=== PATIENT | female | born 1945 | race Two or more races ===

== ENCOUNTER 2018-07-12 06:29 | Day surgery (SDC) | payer MEDICARE, OTHER ==
--- NOTE | 2018-07-11 14:05 | Pre-Procedure Note/Attestation ---
Pre-Procedure Note/Attestation Complete Prior to Procedure Planned Procedure: right Procedure Narrative: phaco with IOL Indications for Procedure Pre-Operative Diagnosis: cataract Attestation I attest that I discussed the nature of the procedure; its benefits; risks and complications; and alternatives (and the risks and benefits of such alternatives ), prior to the procedure, with the patient (or the patient's legal professional healthcare representative). I attest that, if there was a reasonable possibility of needing a blood transfusion, the patient (or the patient's legal professional healthcare representative) was given the [facility] standardized written summary, pursuant to the [place] Blood Safety Act ([place] Health and Safety Code # 1645, as amended). I attest that I re-evaluated the patient just prior to the surgery and that there has been no change in the patient's H&P, except as documented below: BALDEV DUMONT Jul 11, 2018 14:05
--- NOTE | 2018-07-11 14:06 | Opthalmology H&P ---
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 BALDEV DUMONT Jul 11, 2018 14:06
[2018-07-12] VITALS (9 sets, daily range): BP systolic 132–159; BP diastolic 60–83
[~2018-07-12] VITALS: Ht 152.4 cm; Wt 80.7 kg
[~2018-07-12 06:29] MED LIST: LEVOFLOXACIN500 MG ORAL; NEOMYCIN-POLY-7.5 M1 OP
[2018-07-12] MEDS ORDERED: Proparacaine 0.5% Opth Soln 15ml RIGHT EYE ONE (07:00)
[2018-07-12] MEDS ORDERED: Pred Forte 1% Opth Susp 1ml ONE (07:00)
[2018-07-12] MEDS ORDERED: Akten 3.5% 1ml Btl RIGHT EYE ONE (07:00)
[2018-07-12] MEDS ORDERED: Tetracaine 0.5% Opth 4ml Soln RIGHT EYE ONE (07:00)
[2018-07-12] MEDS ORDERED: Dexamethasone 4mg/ml vial ONE ×2 (07:00→12:12)
[2018-07-12] MEDS ORDERED: Maxitrol Opth Oint 3.5gm ONE (07:00)
[2018-07-12] MEDS ORDERED: Pilocarpine 2% Opth 15ml Soln ONE (07:00)
[2018-07-12] MEDS ORDERED: BSS 15ml BTL ONE ×2 (07:20→12:02)
[2018-07-12] MEDS ORDERED: acetaZOLAMIDE 500mg Inj ONE ×2 (07:20→12:01)
[2018-07-12] MEDS ORDERED: Lidocaine 2% MPF 5ml Vial INJ ONE ×2 (07:20→07:21)
[2018-07-12] MEDS ORDERED: EPINEPHrine 1mg/1ml Amp ONE ×2 (07:20→12:01)
[2018-07-12] MEDS ORDERED: BSS 500ml btl ONE ×2 (07:20→12:01)
[2018-07-12] MEDS ORDERED: Carbachol 0.01% Op Soln 1.5ml vial ONE (07:20)
[2018-07-12] MEDS ORDERED: Povidone-Iodine 5% opth solution ONE ×2 (07:21→12:02)
[2018-07-12] MEDS ORDERED: Sodium Hyaluronate 14 mg/ml 0.85ml ONE ×2 (07:21→12:02)
[2018-07-12] MEDS ORDERED: fentaNYL 100 mcg/2 mL IV PRN (12:00)
--- NOTE | 2018-07-12 12:11 | Anethesia Preoperative Eval ---
Anesthesia Pre-op PMH/ROS General Date of Evaluation: Jul 12, 2018 Time of Evaluation: 12:05 Anesthesiologist: Alonso ASA Score: ASA 3 Mallampati Score Class I : Soft palate, uvula, fauces, pillars visible Class II: Soft palate, uvula, fauces visible Class III: Soft palate, base of uvula visible Class IV: Only hard plate visible Mallampati Classification: Class I Surgeon: Zuleima Diagnosis: Cataract Surgical Procedure: cataract extraction with IOL implantation Anesthesia History: none Family History: no anesthesia problems Allergies: Coded Allergies: PENICILLINS (Verified Allergy, Intermediate, hives, 07/11/18) Medications: see eMAR Past Medical History Cardiovascular: Reports: HTN, other - cardiolmegaly, pulmonary hypertension, hyperlipidemia HEENT: Reports: cataract (R) Other: obesity PMH Narrative: salpingooophorectomy Anesthesia Pre-op Phys. Exam Physician Exam Constitutional: NAD Cardiovascular: RRR Respiratory: CTA Airway Exam Mallampati Score: Class I MO: full ROM: full Anesthesia Pre-op A/P Studies Pre-op Studies: EKG, CXR Risk Assessment & Plan Assessment: ASA 3 Plan: Shellie Durham M.D. Jul 12, 2018 12:11
[2018-07-12] MEDS ORDERED: Lidocaine 1% MPF 10mg/ml 5ml ONE (12:12)
[2018-07-12] MEDS ORDERED: Propofol 200mg/20ml IV ONE (12:12)
[2018-07-12] MEDS ORDERED: Midazolam 2mg/2ml Inj ONE (12:13)
[2018-07-12] MEDS: Diclofenac Sod 0.1% Op Soln RIGHT EYE SCH ×3 (12:15→12:26)
[2018-07-12] MEDS: Tropicamide 1% Opth 15ml Soln RIGHT EYE SCH ×3 (12:15→12:27)
[2018-07-12] MEDS: Cyclopentolate 1% Opth Sol 2ml RIGHT EYE SCH ×3 (12:16→12:26)
[2018-07-12] MEDS: Phenylephrine 10% Opth Soln 5ml RIGHT EYE SCH ×3 (12:16→12:26)
[2018-07-12] MEDS: Tobramycin Op Soln 0.3% 5ml RIGHT EYE SCH ×3 (12:16→12:26)
[2018-07-12] MEDS ORDERED: LR 1000ml ONE (12:30)
[2018-07-12] MEDS ORDERED: Sterile Water Irrig 1000ml IRRIG ONE (12:30)
[2018-07-12] MEDS ORDERED: NS Irrig 1000ml ONE (12:30)
[2018-07-12] MEDS ORDERED: LISINOPRIL10 MG ORAL (12:37)
--- NOTE | 2018-07-12 12:59 | Immediate Post-Op Evaluation ---
Immediate Post-Op Evalulation Immediate Post-Op Evalulation Procedure: r cataract extraction with IOL implantation Date of Evaluation: Jul 12, 2018 Time of Evaluation: 12:58 IV Fluids: 300 Blood Products: none Estimated Blood Loss: none Urinary Output: NR Blood Pressure Systolic: 151 Blood Pressure Diastolic: 78 Pulse Rate: 58 Respiratory Rate: 18 O2 Sat by Pulse Oximetry: 100 Temperature (Fahrenheit): 98.7 Pain Score (1-10): 0 Nausea: No Vomiting: No Complications NONE Patient Status: awake Hydration Status: adequate Drug: NOT INDICATED Shellie Gupta M.D. Jul 12, 2018 12:59
--- NOTE | 2018-07-12 13:23 | 48 Hour Post Anesthesia Eval ---
Post Anesthesia Evaluation Procedure: r cataract extraction with IOL implantation Date of Evaluation: Jul 12, 2018 Time of Evaluation: 13:23 Blood Pressure Systolic: 145 0: 78 Pulse Rate: 58 Respiratory Rate: 18 Temperature (Fahrenheit): 98.8 O2 Sat by Pulse Oximetry: 99 Airway: patent Nausea: No Vomiting: No Pain Intensity: 0 Hydration Status: adequate Mental Status/LOC: patient returned to baseline Follow-up care needed: ready to discharge Shellie Gupta M.D. Jul 12, 2018 13:23
--- NOTE | 2018-07-13 09:26 | Brief Operative Note ---
Immediate Post Operative Note Operative Note Chief Complaint: blurry vision Pre-op Diagnosis: cataract, OD Procedure: phaco with IOL, OD Post-op Diagnosis: Pseudophakia, OD Post-op Diagnosis: same as pre-op Findings: consistent w/pre-op dx studies Surgeon: Zuleima Anesthesiologist: Alonso Anesthesia: MAC Specimen: none Complications: none Condition: stable Fluids: LR Estimated Blood Loss: none Drains: none Implant(s) used?: Yes BALDEV DUMONT Jul 13, 2018 09:26
--- NOTE | 2018-07-13 12:04 | Operative Note - PDOC ---
Operative Note Operative Note Date of Operation/Procedure: Jul 12, 2018 Chief Complaint: blurry vision Pre-op Diagnosis: cataract, OD Procedure: phaco with IOL, OD Post-op Diagnosis: Pseudophakia, OD Post-op Diagnosis: same as pre-op Operative Findings: consistent w/pre-op dx studies Surgeon: Zuleima Anesthesiologist: Alonso Anesthesia: MAC Specimen: none Complications: none Condition: stable Fluids: LR Estimated Blood Loss: none Drains: none Implant(s) used?: Yes Indications for Procedure cataract Description of Procedure This patient has been complaining visually significant cataract in the affected eye with the best corrected visual acuity under moderate glare conditions worse. The patient complains of difficulties with glare in performing activities of daily living and wants to manage personal affairs with comfort and accuracy and see well enough to move with safety at home and outdoors. The risks, benefits and alternatives of the procedure were discussed with the patient in the office prior to scheduling surgery. All questions from the patient were answered after the surgical procedure was explained in detail. The risks of the procedure as explained to the patient include, but are not limited to, pain, infection, bleeding, loss of vision, retinal detachment, need for further surgery, loss of lens nucleus, double vision, etc. Alternative procedures were discussed which include, to do nothing or seek a second opinion. Informed consent for this procedure was obtained from the patient. The patient was referred to a primary care physician for a cardiopulmonary clearance prior to surgery, after proper evaluation was done patient was properly scheduled for outpatient surgery. The patient was brought to the operating room where the anesthesiologist established I.V. lines and cardiac monitoring leads. Mild intravenous sedation was administered. The patient was then prepared with a 5% solution of povidone -iodine to the conjunctival fornix and lashes, and a 5% solution of povidone- iodine to the lids and periorbital skin. The patient was then draped in the usual sterile fashion. A lid speculum was then placed in the operative eye. A keratome blade was then used to create a biplanar incision into the anterior chamber. Viscoelastics was then instilled into the anterior chamber. A 3-mm single pass clear corneal incision was made just anterior to the vascular arcade of the temporal limbus using a keratome. A 5- to 5.5-mm anterior capsulorrhexis was created. The lens nucleus was hydrodissected and hydrodelineated. The nucleus was then phacoemulsified using a quadrantic [id number] technique. Following the deep groove formation, the lens was split bimanually and the resultant quadrants and cortical material was removed under high-vacuum burst-mode phacoemulsification. Peripheral cortex was removed with the irrigation and aspiration handpiece. The capsular bag was expanded with viscoelastic. The intraocular lens was then inspected for right power and size and thought to be satisfactory. The implant was inspected under the microscope and found to be free of defects. The implant was inserted into the cartridge system under viscoelastic and placed in the capsular bag. The trailing haptic was positioned with the cartridge system. Viscoelastics was removed from the anterior chamber using the irrigation and aspiration unit. The corneal wound was then tested for leaks and none were found. The lid speculum were then removed. Sponge and needle counts were correct. An eye patch and shield were placed over the operative eye. The patient was taken to the recovery room in stable condition. There were no complications. The patient tolerated the procedure well. The patient was then transferred to the ambulatory surgery unit in stable and satisfactory condition , was given detailed written instructions and asked to follow up in the office the next day. BALDEV DUMONT Jul 13, 2018 12:04
== END 2018-07-12 14:20 | disposition home or self-care (01) ==
LOC: SUR 06:29
DX: H25.11 Age-related nuclear cataract, right eye (principal); I10 Essential (primary) hypertension; I51.7 Cardiomegaly; I27.20 Pulmonary hypertension, unspecified; E78.5 Hyperlipidemia, unspecified; E66.9 Obesity, unspecified
CPT/HCPCS: 66984; J0171; J1100; J1120; J2250; J2704; J3370; J7120; V2632; 94003; 94150

== ENCOUNTER 2019-08-11 08:01 | Day surgery (SDC) | payer MEDICARE, MEDICAID ==
--- NOTE | 2019-03-20 17:22 | Pre-Procedure Note/Attestation ---
Pre-Procedure Note/Attestation Complete Prior to Procedure Planned Procedure: left Procedure Narrative: Cataract Extraction With Intraocular Lens Left Eye Indications for Procedure Pre-Operative Diagnosis: Nuclear Sclerotic Cataract Left Eye Attestation I attest that I discussed the nature of the procedure; its benefits; risks and complications; and alternatives (and the risks and benefits of such alternatives ), prior to the procedure, with the patient (or the patient's legal pharmaceutical specialty representative). I attest that, if there was a reasonable possibility of needing a blood transfusion, the patient (or the patient's legal pharmaceutical specialty representative) was given the [facility] standardized written summary, pursuant to the [place] Blood Safety Act ([place] Health and Safety Code # 1645, as amended). I attest that I re-evaluated the patient just prior to the surgery and that there has been no change in the patient's H&P, except as documented below: Scottie Dewey MD March 20, 2019 17:22
--- NOTE | 2019-03-20 17:25 | Opthalmology H&P ---
Ophthalmology H&P H&P Chief Complaint: decreased vision in left eye HPI Vision Affects Ability to: read HPI Narrative Blurry Vision Exam Visual Acuity: OD 20/25 OS 20/50 Tension: OD 16 OS 16 Eye Exam: normal OU: external exam, palpebral fissure-width, marginal reflex distance, levator function, corneas, anterior chambers; findings: lens - cataract ns os Assessment/Plan Treatment Plan: cataract extraction w/ lens implant Goals of Treatment: improvement of vision, enhance quality of life Attestation Attestation The risks and benefits of the surgery as well as alternative procedures were explained to the patient in detail. Scottie Dewey MD March 20, 2019 17:25
--- NOTE | 2019-03-28 10:08 | Opthalmology H&P ---
Ophthalmology H&P H&P Chief Complaint: decreased vision in left eye HPI Vision Affects Ability to: read, manage personal affairs HPI Narrative Blurry vision Exam Visual Acuity: OD 20/25 OS 20/50 Tension: OD 16 OS 16 Eye Exam: normal OU: external exam, palpebral fissure-width, marginal reflex distance, levator function, corneas, anterior chambers, fundus exam; findings: lens - pseudo OD / NS cataract OS Assessment/Plan Treatment Plan: cataract extraction w/ lens implant Goals of Treatment: improvement of vision, enhance quality of life Attestation Attestation The risks and benefits of the surgery as well as alternative procedures were explained to the patient in detail. Scottie Dewey MD March 28, 2019 10:08
--- NOTE | 2019-03-28 10:09 | Pre-Procedure Note/Attestation ---
Pre-Procedure Note/Attestation Complete Prior to Procedure Planned Procedure: left Procedure Narrative: Cataract extraction with intraocular lens implant left eye Indications for Procedure Pre-Operative Diagnosis: Nuclear Sclerotic Cataract Left Eye Attestation I attest that I discussed the nature of the procedure; its benefits; risks and complications; and alternatives (and the risks and benefits of such alternatives ), prior to the procedure, with the patient (or the patient's legal outside sales representative insurance). I attest that, if there was a reasonable possibility of needing a blood transfusion, the patient (or the patient's legal outside sales representative insurance) was given the [facility] standardized written summary, pursuant to the [place] Blood Safety Act ([place] Health and Safety Code # 1645, as amended). I attest that I re-evaluated the patient just prior to the surgery and that there has been no change in the patient's H&P, except as documented below: Scottie Dewey MD March 28, 2019 10:09
--- NOTE | 2019-08-04 15:53 | Pre-Procedure Note/Attestation ---
Pre-Procedure Note/Attestation Complete Prior to Procedure Planned Procedure: left Procedure Narrative: Cataract Extraction with intraocular lens implant left eye Indications for Procedure Pre-Operative Diagnosis: Nuclear Sclerotic Cataract Left Eye Attestation I attest that I discussed the nature of the procedure; its benefits; risks and complications; and alternatives (and the risks and benefits of such alternatives ), prior to the procedure, with the patient (or the patient's legal senior sales representative). I attest that, if there was a reasonable possibility of needing a blood transfusion, the patient (or the patient's legal senior sales representative) was given the [facility] Services standardized written summary, pursuant to the Ammon [place] Blood Safety Act ([place] Health and Safety Code # 1645, as amended). I attest that I re-evaluated the patient just prior to the surgery and that there has been no change in the patient's H&P, except as documented below: Scottie Dewey MD Aug 04, 2019 15:53
--- NOTE | 2019-08-05 12:05 | Opthalmology H&P ---
Ophthalmology H&P H&P Chief Complaint: decreased vision in left eye HPI Vision Affects Ability to: read, focus/use eyes together HPI Narrative Blurry vision Exam Visual Acuity: OD 20/40 OS 20/50 Tension: OD 11 OS 12 Eye Exam: normal OU: external exam, palpebral fissure-width, marginal reflex distance, levator function, corneas, anterior chambers, lens - NS Cataract OS, fundus exam; findings: lens - NS Cataract OS Assessment/Plan Treatment Plan: cataract extraction w/ lens implant Goals of Treatment: improvement of vision, enhance quality of life Attestation Attestation The risks and benefits of the surgery as well as alternative procedures were explained to the patient in detail. Scottie Dewey MD Aug 05, 2019 12:05
--- NOTE | 2019-08-08 12:20 | NUR ---
[employer] translation services used to obtained medical history with auto glass technician Elizabeth ID# [id number].
[2019-08-11] VITALS (7 sets, daily range): BP systolic 126–162; BP diastolic 69–83
[~2019-08-11] VITALS: Ht 149.9 cm; Wt 81.6 kg
[~2019-08-11 08:01] MED LIST changes: +Akten 3.5% 1ml Btl LEFT EYE ONE; +Cyclopentolate 1% Opth Sol 2ml LEFT EYE SCH; +Diclofenac Sod 0.1% Op Soln LEFT EYE SCH; +LISINOPRIL10 MG ORAL; +Phenylephrine 10% Opth Soln 5ml LEFT EYE SCH; +Proparacaine 0.5% Opth Soln 15ml LEFT EYE ONE; +Tetracaine 0.5% Opth 4ml Soln LEFT EYE ONE; +Tobramycin Op Soln 0.3% 5ml LEFT EYE SCH; +Tropicamide 1% Opth 15ml Soln LEFT EYE SCH
[2019-08-11] MEDS: Tropicamide 1% Opth 15ml Soln LEFT EYE SCH ×3 (12:03→12:16)
[2019-08-11] MEDS: Cyclopentolate 1% Opth Sol 2ml LEFT EYE SCH ×3 (12:03→12:16)
[2019-08-11] MEDS: Diclofenac Sod 0.1% Op Soln LEFT EYE SCH ×3 (12:03→12:16)
[2019-08-11] MEDS: Phenylephrine 10% Opth Soln 5ml LEFT EYE SCH ×3 (12:03→12:16)
[2019-08-11] MEDS: Tobramycin Op Soln 0.3% 5ml LEFT EYE SCH ×3 (12:03→12:16)
[2019-08-11] MEDS ORDERED: EPINEPHrine 1mg/1ml Amp ONE (14:54)
[2019-08-11] MEDS ORDERED: Polysporin Opth Oint 3.5gm ONE (14:55)
[2019-08-11] MEDS ORDERED: Povidone-Iodine 5% opth solution ONE (14:55)
[2019-08-11] MEDS ORDERED: Sodium Hyaluronate 14 mg/ml 0.85ml ONE (14:55)
[2019-08-11] MEDS ORDERED: BSS 15ml BTL ONE (14:55)
[2019-08-11] MEDS ORDERED: BSS 500ml btl ONE (14:55)
[2019-08-11] MEDS ORDERED: Lidocaine 1% MPF 10mg/ml 5ml ONE (14:56)
[2019-08-11] MEDS ORDERED: fentaNYL 100 mcg/2 mL IV ONE (14:56)
--- NOTE | 2019-08-11 14:58 | Anethesia Preoperative Eval ---
Anesthesia Pre-op PMH/ROS General Date of Evaluation: Aug 11, 2019 Anesthesiologist: Sammy ASA Score: ASA 2 Mallampati Score Class I : Soft palate, uvula, fauces, pillars visible Class II: Soft palate, uvula, fauces visible Class III: Soft palate, base of uvula visible Class IV: Only hard plate visible Mallampati Classification: Class II Surgeon: Zuleima Diagnosis: Left cataract Surgical Procedure: left cataract extraction with iOL Anesthesia History: none Family History: no anesthesia problems Allergies: Coded Allergies: PENICILLINS (Verified Allergy, Intermediate, tongue swelling, 08/11/19) Medications: see eMAR Patient NPO?: Yes NPO Date: Aug 10, 2019 NPO Time: 20:00 Past Medical History Cardiovascular: Reports: HTN, other - HLD Musculoskeletal/Integumentary: Reports: other - lbp Other: obesity PSxH Narrative: bso Anesthesia Pre-op Phys. Exam Physician Exam Last Vital Signs Date Time Temp Pulse Resp B/P (MAP) Pulse Ox O2 Delivery O2 Flow Rate FiO2 08/11/19 12:07 Room Air 08/11/19 12:07 97.5 52 18 138/71 98 Constitutional: NAD Cardiovascular: RRR Respiratory: CTA Airway Exam Mallampati Score: Class II MO: limited ROM: limited Anesthesia Pre-op A/P Labs see chart Studies Pre-op Studies: EKG - sr Risk Assessment & Plan Assessment: aSA II Plan: MAC Status Change Before Surgery: No Pre-Antibiotics Drug: N/A Ely Mancia MD Aug 11, 2019 14:58
[2019-08-11] MEDS ORDERED: Dexamethasone 4mg/ml vial ONE (15:00)
[2019-08-11] MEDS ORDERED: Sterile Water Irrig 1000ml IRRIG ONE (15:00)
[2019-08-11] MEDS ORDERED: Pred Forte 1% Opth Susp 1ml ONE (15:00)
[2019-08-11] MEDS ORDERED: LR 1000ml ONE (15:00)
[2019-08-11] MEDS ORDERED: Pilocarpine 1% Opth 15ml Soln ONE (15:00)
[2019-08-11] MEDS ORDERED: NS Irrig 1000ml ONE (15:00)
[2019-08-11] MEDS ORDERED: LR 1000ml 1,000 ML IVLG SCH (15:06)
[2019-08-11] MEDS ORDERED: DiphenhydrAMINE 50mg/ml Inj IVP PRN (15:15)
--- NOTE | 2019-08-11 15:37 | Immediate Post-Op Evaluation ---
Immediate Post-Op Evalulation Immediate Post-Op Evalulation Procedure: left cataract extraction with Iol Date of Evaluation: Aug 11, 2019 Time of Evaluation: 15:40 IV Fluids: 98.5 Blood Products: 0 Estimated Blood Loss: 0 Urinary Output: 0 Pulse Rate: 60 Respiratory Rate: 16 O2 Sat by Pulse Oximetry: 100 Temperature (Fahrenheit): 98.5 Pain Score (1-10): 0 Nausea: No Vomiting: No Complications 0 Patient Status: awake, patent, none Hydration Status: adequate Drug: N/A Ely Mancia MD Aug 11, 2019 15:37
--- NOTE | 2019-08-11 15:38 | 48 Hour Post Anesthesia Eval ---
Post Anesthesia Evaluation Procedure: left cataract extraction with Iol Date of Evaluation: Aug 11, 2019 Airway: patent Nausea: No Vomiting: No Pain Intensity: 0 Hydration Status: adequate Cardiopulmonary Status: at baseline Mental Status/LOC: patient returned to baseline Post-Anesthesia Complications: 0 Follow-up care needed: ready to discharge Ely Mancia MD Aug 11, 2019 15:38
--- NOTE | 2019-08-13 15:39 | Brief Operative Note ---
Immediate Post Operative Note Operative Note Chief Complaint: Blurry vision Pre-op Diagnosis: Nuclear Sclerotic Cataract Left Eye Procedure: Cataract extraction with IOL implant left eye Post-op Diagnosis: Pseudo OS Findings: consistent w/pre-op dx studies Surgeon: Scottie Dewey MD Anesthesiologist: Ely Merchant MD Anesthesia: MAC Specimen: none Complications: none Condition: stable Fluids: LR Estimated Blood Loss: none Drains: none Implant(s) used?: Yes - IOL Scottie Dewey MD Aug 13, 2019 15:39
--- NOTE | 2019-08-13 15:45 | Operative Note - PDOC ---
Operative Note Operative Note Date of Operation/Procedure: Aug 11, 2019 Chief Complaint: Blurry vision Pre-op Diagnosis: Nuclear Sclerotic Cataract Left Eye Procedure: Cataract extraction with IOL implant left eye Post-op Diagnosis: Pseudo OS Operative Findings: consistent w/pre-op dx studies Surgeon: Scottie Dewey MD Anesthesiologist: Ely Merchant MD Anesthesia: MAC Specimen: none Complications: none Condition: stable Fluids: LR Estimated Blood Loss: none Drains: none Implant(s) used?: Yes - IOL Indications for Procedure Nuclear sclerotic cataract left eye Description of Procedure This patient has been complaining visually significant cataract in the left eye with the best corrected visual acuity of 20/50 under moderate glare conditions worse. The patient complains of difficulties with glare in performing activities of daily living and wants to manage personal affairs with comfort and accuracy and see well enough to move with safety at home and outdoors. The risks, benefits and alternatives of the procedure were discussed with the patient in the office prior to scheduling surgery. All questions from the patient were answered after the surgical procedure was explained in detail. The risks of the procedure as explained to the patient include, but are not limited to, pain, infection, bleeding, loss of vision, retinal detachment, need for further surgery, loss of lens nucleus, double vision, etc. Alternative procedures were discussed which include, to do nothing or seek a second opinion. Informed consent for this procedure was obtained from the patient. The patient was referred to a primary care physician for a cardiopulmonary clearance prior to surgery, after proper evaluation was done patient was properly scheduled for outpatient surgery. The patient was brought to the operating room where the anesthesiologist established I.V. lines and cardiac monitoring leads. Mild intravenous sedation was administered. The patient was then prepared with a 5% solution of povidone -iodine to the conjunctival fornix and lashes, and a 5% solution of povidone- iodine to the lids and periorbital skin. The patient was then draped in the usual sterile fashion. A lid speculum was then placed in the operative eye. A keratome blade was then used to create a biplanar incision into the anterior chamber. Viscoelastics was then instilled into the anterior chamber. A curvilinear capsulorrhexis was then fashioned with an utrata forceps. A BSS was used with G-27 cannula was used to hydrodissect and hydrodelineate the lens nucleus. Paracentesis incision was made at 9 o'clock with sharp blade. The phacoemulsification unit, after being properly adjusted and tested, was then used to emulsify the nucleus. Residual cortical material was aspirated with the irrigation and aspiration unit. [place] was then instilled into the anterior chamber. The corneal wound was then enlarged to the size of the optic with the jonathon keratome blade. The intraocular lens was then inspected for right power and size and thought to be satisfactory. Then the lens was gently placed in the capsular bag. Positioning within the capsular bag was confirmed by direct visualization. Optic centration was accomplished with a [place]ins[place] hook. Viscoelastics was removed from the anterior chamber using the irrigation and aspiration unit. The corneal wound was then tested for leaks and none were found. The lid speculum were then removed. Sponge and needle counts were correct. An eye patch and shield were placed over the operative eye. The patient was taken to the recovery room in stable condition. There were no complications. The patient tolerated the procedure well. The patient was then transferred to the ambulatory surgery unit in stable and satisfactory condition , was given detailed written instructions and asked to follow up in the office the next day. Scottie Dewey MD Aug 13, 2019 15:45
== END 2019-08-11 17:00 | disposition home or self-care (01) ==
LOC: SUR 08:01
DX: H25.12 Age-related nuclear cataract, left eye (principal); I10 Essential (primary) hypertension; E78.5 Hyperlipidemia, unspecified; E66.9 Obesity, unspecified; Z88.0 Allergy status to penicillin; Z68.36 Body mass index [BMI] 36.0-36.9, adult
CPT/HCPCS: 66984; J0171; J1100; J3010; V2632; 94003; 94150